=== PATIENT | male | born 1965 | race African-American/Black ===

== ENCOUNTER 2022-07-24 05:04 | Day surgery (SDC) | payer OTHER ==
[2022-07-23 11:57] VITALS: BMI 27.1
[2022-07-24 12:00] VITALS: BP 125/79; PULSE 71; RESP 20; TEMP 98
== END 2022-07-24 12:12 | disposition home or self-care (01) ==
LOC: JASU-ENDO 05:04
PROVIDERS: ATTEND Student in an Organized Health Care Education/Training Program
PROC: 0DBH8ZX Excision of Cecum, Via Natural or Artificial Opening Endoscopic, Diagnostic (ICD-10-PCS; principal; 2022-07-24 10:00)
DX: D12.0 Benign neoplasm of cecum (principal)
CPT/HCPCS: 88305-TC